=== PATIENT | female | born 1930 | race Caucasian/White ===

== ENCOUNTER 2017-12-18 07:18 | Outpatient (CLI) | payer OTHER | END 2017-12-18 07:28 | disposition home or self-care (01) | LOC: TOM 07:18 | DX: R51 Headache (principal) ==

== ENCOUNTER 2018-09-21 07:58 | Outpatient (CLI) | payer OTHER | END 2018-09-21 17:00 | disposition home or self-care (01) | LOC: TOM 07:58 | DX: R10.0 Acute abdomen (principal); R10.2 Pelvic and perineal pain ==

== ENCOUNTER 2019-08-03 07:54 | Emergency (ER) | payer OTHER ==
[~2019-08-03] VITALS: Ht 154.9 cm; Wt 76.2 kg
[2019-08-03] MEDS ORDERED: VASOTEC20 M1 PO (09:02)
[2019-08-03] MEDS ORDERED: IRON325 MG PO (09:02)
[2019-08-03] MEDS ORDERED: HYDRODIURIL12.5 MG PO (09:02)
[2019-08-03] MEDS ORDERED: TOPROL XL100 M1 PO (09:02)
[2019-08-03] MEDS ORDERED: REMINYL8 MG PO (09:03)
[2019-08-03] MEDS ORDERED: GRALISE600 MG PO (09:03)
[2019-08-03] MEDS ORDERED: CILOSTAZOL100 MG PO (09:03)
[2019-08-03] MEDS ORDERED: BUPROPION HCL200 M1 PO (09:04)
[2019-08-03] MEDS ORDERED: ATIVAN0.5 M1 PO (09:04)
[2019-08-03] MEDS ORDERED: RESTORIL30 M1 PO (09:04)
[2019-08-03] MEDS ORDERED: ATORVASTATIN CA10 MG PO (09:04)
[2019-08-03] MEDS ORDERED: PROTONIX40 MG PO (09:04)
[2019-08-03] MEDS ORDERED: MIRTAZAPINE7.5 MG PO (09:05)
[2019-08-03] MEDS ORDERED: STOOL SOFTENER50 MG PO (09:05)
== END 2019-08-03 13:02 | disposition home or self-care (01) ==
LOC: ER 07:54
DX: S01.82XA Laceration with foreign body of other part of head, initial encounter (principal); S05.11XA Contusion of eyeball and orbital tissues, right eye, initial encounter; M54.2 Cervicalgia; M62.81 Muscle weakness (generalized); G30.8 Other Alzheimer's disease; F02.80 Dementia in other diseases classified elsewhere, unspecified severity, without behavioral disturbance, psychotic disturbance, mood disturbance, and anxiety; W18.09XA Striking against other object with subsequent fall, initial encounter; Y93.89 Activity, other specified; Y92.122 Bedroom in nursing home as the place of occurrence of the external cause; Y99.8 Other external cause status